=== PATIENT | male | born 1950 | race Caucasian/White ===

== ENCOUNTER 2020-12-20 13:51 | Outpatient (CLI) | payer MEDICARE, BC | END 2020-12-20 13:52 | disposition home or self-care (01) | LOC: BICRAD 13:51 | PROVIDERS: ATTEND Podiatrist | DX: T81.40XA Infection following a procedure, unspecified, initial encounter (principal); M86.9 Osteomyelitis, unspecified; S92.522D Displaced fracture of middle phalanx of left lesser toe(s), subsequent encounter for fracture with routine healing; S92.535A Nondisplaced fracture of distal phalanx of left lesser toe(s), initial encounter for closed fracture ==

== ENCOUNTER 2021-01-09 12:02 | Outpatient (CLI) | payer MEDICARE, BC | END 2021-01-09 12:03 | disposition home or self-care (01) | LOC: BICRAD 12:02 | PROVIDERS: ATTEND Internal Medicine Infectious Disease | DX: M86.272 Subacute osteomyelitis, left ankle and foot (principal) ==

== ENCOUNTER 2021-03-20 11:59 | Outpatient (CLI) | payer MEDICARE, BC | END 2021-03-20 12:00 | disposition home or self-care (01) | LOC: BICRAD 11:59 | PROVIDERS: ATTEND Internal Medicine Infectious Disease | DX: M86.272 Subacute osteomyelitis, left ankle and foot (principal); M19.072 Primary osteoarthritis, left ankle and foot; M85.872 Other specified disorders of bone density and structure, left ankle and foot; Z98.890 Other specified postprocedural states ==

== ENCOUNTER 2021-04-18 14:34 | Outpatient (CLI) | payer MEDICARE, BC | END 2021-04-18 14:35 | disposition home or self-care (01) | LOC: BICRAD 14:34 | PROVIDERS: ATTEND Podiatrist | DX: R60.0 Localized edema (principal); M79.89 Other specified soft tissue disorders; Z87.828 Personal history of other (healed) physical injury and trauma ==

== ENCOUNTER 2021-06-26 08:38 | Outpatient (CLI) | payer MEDICARE, BC | END 2021-06-26 08:39 | disposition home or self-care (01) | LOC: BICRAD 08:38 | PROVIDERS: ATTEND Podiatrist | DX: T81.40XD Infection following a procedure, unspecified, subsequent encounter (principal) ==

== ENCOUNTER 2021-12-05 00:01 | Emergency (ER) | payer MEDICARE, BC | END 2021-12-05 02:58 | disposition home or self-care (01) | LOC: ERS 00:01 | DX: S60.812A Abrasion of left wrist, initial encounter (principal); S60.410A Abrasion of right index finger, initial encounter; S60.412A Abrasion of right middle finger, initial encounter; E11.9 Type 2 diabetes mellitus without complications; Z79.4 Long term (current) use of insulin; W22.8XXA Striking against or struck by other objects, initial encounter | CPT/HCPCS: 70450; 72125 ==

== ENCOUNTER 2022-01-01 14:23 | Outpatient (CLI) | payer MEDICARE, BC | END 2022-01-01 14:24 | disposition home or self-care (01) | LOC: BICRAD 14:23 | PROVIDERS: ATTEND Internal Medicine Infectious Disease | DX: M86.672 Other chronic osteomyelitis, left ankle and foot (principal); M79.89 Other specified soft tissue disorders; Z98.890 Other specified postprocedural states ==